=== PATIENT | male | born 2000 | race Hispanic/Latino ===

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

== ENCOUNTER 2023-05-11 11:54 | Emergency (ER) | payer SELFPAY | END 2023-05-11 13:38 | disposition left against medical advice (07) | LOC: ERS 11:54 | DX: Z53.21 Procedure and treatment not carried out due to patient leaving prior to being seen by health care provider (principal) ==

== ENCOUNTER 2023-05-12 01:31 | Emergency (ER) | payer SELFPAY ==
[2023-05-12] MEDS ORDERED: Ketorolac Tromethamine 30 MG (1 mL) VIAL ONE (03:37)
== END 2023-05-12 03:56 | disposition home or self-care (01) ==
LOC: ERS 01:31
DX: K04.7 Periapical abscess without sinus (principal); F84.0 Autistic disorder; Z55.6 Problems related to health literacy
CPT/HCPCS: 64400; 96372; J1885

== ENCOUNTER 2023-08-24 22:31 | Emergency (ER) | payer SELFPAY ==
[2023-08-24 23:25] LABS: #Basophils 0.03 10x3/uL (0.0-0.2); %Basophils 0.5 % (0.0-1.0); %Eosinophils 2.3 % (0.0-10.0); %Lymphocytes 31.7 % (21.0-51.0); %Monocytes 12.9 % (0.0-10.0); %Neutrophils 51.7 % (42.0-75.0); Hematocrit 46.6 % (42.0-52.0); Hemoglobin 16.3 g/dL (14.0-18.0); Mean Corpuscular Hemoglobin 30.3 pg (27.0-31.0); Mean Corpuscular Volume 86.6 fL (78.0-98.0); Mean Platelet Volume 10.8 fL (7.4-10.4); Platelet Count 223 10x3/uL (130-400); RBC Distribution Width 12.2 % (11.5-14.5); Red Blood Cell (RBC) Count 5.38 mill/uL (4.70-6.10)
[2023-08-24 23:41] LABS: ALT (SGPT) 134 U/L (8-55); AST (SGOT) 57 U/L (5-34); Albumin 4.3 g/dL (3.5-5.0); Alkaline Phosphatase 128 U/L (40-110); Anion Gap 18 mmol/L (10-20); BUN (Urea Nitrogen) 24 mg/dL (8.9-20.6); Bilirubin, Total 0.6 mg/dL (0.2-1.2); Calc. Creatinine Clearance 0 mL/min (70-130); Calcium 9.7 mg/dL (7.8-10.44); Carbon Dioxide 24 mmol/L (22-29); Chloride 106 mmol/L (98-107); Estimated GFR 78; Globulin 3.7 g/dL (2.4-3.5); Glucose 92 mg/dL (70-105); Potassium 3.9 mmol/L (3.5-5.1); Sodium 144 mmol/L (136-145)
[2023-08-24 23:45] LABS: Troponin I Less than 0.010 ng/mL (< 0.028)
[2023-08-25] MEDS ORDERED: Lidocaine 2% Viscous 10 mL, Alum & Magn 30 mL SSW SCH (00:30)
== END 2023-08-25 00:58 | disposition home or self-care (01) ==
LOC: ERS 22:31
DX: E86.0 Dehydration (principal); N17.9 Acute kidney failure, unspecified; F41.9 Anxiety disorder, unspecified; K21.9 Gastro-esophageal reflux disease without esophagitis; F17.210 Nicotine dependence, cigarettes, uncomplicated; F17.290 Nicotine dependence, other tobacco product, uncomplicated
CPT/HCPCS: 36415; 80053; 84484; 85025; 93005

== ENCOUNTER 2023-08-25 05:11 | Emergency (ER) | payer SELFPAY | END 2023-08-25 06:01 | disposition home or self-care (01) | LOC: ERS 05:11 | DX: R07.9 Chest pain, unspecified (principal); F17.210 Nicotine dependence, cigarettes, uncomplicated; F17.290 Nicotine dependence, other tobacco product, uncomplicated; X50.0XXA Overexertion from strenuous movement or load, initial encounter; Y93.B9 Activity, other involving muscle strengthening exercises; Y92.39 Other specified sports and athletic area as the place of occurrence of the external cause; Z55.6 Problems related to health literacy | CPT/HCPCS: 71045; 93005 ==